=== PATIENT | female | born 1940 | race Caucasian/White ===

== ENCOUNTER 2016-05-01 07:22 | Day surgery (SDC) | payer MEDICARE, OTHER ==
[2016-05-01] MEDS ORDERED: levoFLOXacin 0.5% OPHTH DROPS 5 ML OPTH ONE ×2 (07:30→08:30)
[2016-05-01] MEDS ORDERED: BSS/LIDOCAINE/EPINEPHRINE 1 ML SYRINGE IO ONE ×2 (07:30→08:31)
[2016-05-01] MEDS ORDERED: PROPARACAINE 0.5% OPHTH DROPS 15 ML OPTH ONE ×2 (07:30→08:30)
[2016-05-01] MEDS ORDERED: EPINEPHrine 1 MG/ML AMP IO ONE ×2 (07:30→08:30)
[2016-05-01] MEDS ORDERED: TETRACAINE OPHTH DROPS 2 ML OPTH ONE ×2 (07:30→08:30)
[2016-05-01] MEDS ORDERED: BRIMONIDINE 0.2% OPHTH DROPS 5 ML OPTH ONE ×2 (07:30→08:30)
[2016-05-01] MEDS ORDERED: CHONDR SULF/HYALURONATE SYRINGE IO ONE ×2 (07:30→08:31)
[2016-05-01] MEDS ORDERED: CYCLOPENTOLATE 1% OPHTH DROPS 2 ML OPTH ONE (07:45)
[2016-05-01] MEDS ORDERED: TROPICAMIDE 1% OPHTH 2 ML DROPS OPTH ONE (07:45)
[2016-05-01] MEDS ORDERED: KETOROLAC 0.45% OPHTH DROPS OPTH ONE (07:46)
[2016-05-01] MEDS ORDERED: LACTATED RINGERS 500 ML IV ONE (07:47)
[2016-05-01] MEDS ORDERED: MIDAZOLAM 2 MG/2 ML VIAL IVP ONE (08:25)
== END 2016-05-01 07:23 | disposition home or self-care (01) ==
PROC: 08RJ3JZ Replacement of Right Lens with Synthetic Substitute, Percutaneous Approach (ICD-10-PCS; principal; 2016-05-01 08:25)
DX: H25.11 Age-related nuclear cataract, right eye (principal); Z87.891 Personal history of nicotine dependence; I10 Essential (primary) hypertension; E78.5 Hyperlipidemia, unspecified
CPT/HCPCS: 66984; V2632

== ENCOUNTER 2016-05-05 09:30 | Outpatient (CLI) | payer MEDICARE, OTHER | END 2016-05-05 09:31 | disposition home or self-care (01) | DX: R73.09 Other abnormal glucose (principal); I10 Essential (primary) hypertension; E78.5 Hyperlipidemia, unspecified; Z79.899 Other long term (current) drug therapy ==

== ENCOUNTER 2016-06-26 09:28 | Outpatient (CLI) | payer MEDICARE, OTHER | END 2016-06-26 09:29 | disposition home or self-care (01) | DX: M85.88 Other specified disorders of bone density and structure, other site (principal) ==

== ENCOUNTER 2016-06-26 09:30 | Outpatient (CLI) | payer MEDICARE, OTHER | END 2016-06-26 09:31 | disposition home or self-care (01) | DX: Z12.31 Encounter for screening mammogram for malignant neoplasm of breast (principal) ==

== ENCOUNTER 2016-08-23 11:17 | Outpatient (CLI) | payer MEDICARE, OTHER | END 2016-08-23 11:18 | disposition home or self-care (01) | DX: R05 Cough (principal) ==

== ENCOUNTER 2016-09-26 06:05 | Day surgery (SDC) | payer MEDICARE, OTHER ==
[2016-09-26] MEDS ORDERED: LACTATED RINGERS 1,000 ML IV ONE (06:51)
[2016-09-26] MEDS ORDERED: MIDAZOLAM 2 MG/2 ML VIAL IVP ONE (07:35)
[2016-09-26] MEDS ORDERED: fentaNYL 100 MCG/2 ML VIAL IVP ONE (07:35)
[2016-09-26 08:59] VITALS: BP 134/63
== END 2016-09-26 06:06 | disposition home or self-care (01) ==
LOC: SDS 06:05
PROVIDERS: ATTEND Surgery
PROC: 0DBK8ZZ Excision of Ascending Colon, Via Natural or Artificial Opening Endoscopic (ICD-10-PCS; principal; 2016-09-26 07:30)
DX: R19.5 Other fecal abnormalities (principal); D12.2 Benign neoplasm of ascending colon; Q27.33 Arteriovenous malformation of digestive system vessel; K57.30 Diverticulosis of large intestine without perforation or abscess without bleeding; K64.8 Other hemorrhoids; I10 Essential (primary) hypertension; J45.909 Unspecified asthma, uncomplicated; Z87.891 Personal history of nicotine dependence; E88.81 Metabolic syndrome and other insulin resistance
CPT/HCPCS: 45385; J7120; 88305

== ENCOUNTER 2016-12-24 08:09 | Outpatient (CLI) | payer MEDICARE, OTHER ==
[2016-12-24 09:49] LABS: HEMOGLOBIN A1C 0.67 g/dL
== END 2016-12-24 08:10 | disposition home or self-care (01) ==
LOC: LAB 08:09
PROVIDERS: ATTEND Internal Medicine
DX: E11.65 Type 2 diabetes mellitus with hyperglycemia (principal)
CPT/HCPCS: 36415; 83036

== ENCOUNTER 2017-05-02 08:43 | Outpatient (CLI) | payer MEDICARE, OTHER ==
[2017-05-02 09:22] LABS: HB2 TOTAL 13.4 g/dL; HEMOGLOBIN A1C 0.71 g/dL
== END 2017-05-02 08:44 | disposition home or self-care (01) ==
LOC: LAB 08:43
PROVIDERS: ATTEND Internal Medicine
DX: E11.9 Type 2 diabetes mellitus without complications (principal)
CPT/HCPCS: 36415; 83036

== ENCOUNTER 2017-06-18 08:07 | Outpatient (CLI) | payer MEDICARE, OTHER ==
[2017-06-18 08:34] LABS: BASOPHILS % (AUTO) 0.7 %; EOSINOPHILS # (AUTO) 0.1 10^3/uL (0.0-0.7); EOSINOPHILS % (AUTO) 1.8 %; HGB - HEMOGLOBIN 12.6 g/dL (12.0-16.0); LYMPHOCYTES # (AUTO) 1.9 10^3/uL (1.5-3.5); MEAN CORPUSCULAR HGB CONC 32.5 g/dL (32.0-36.0); MEAN CORPUSCULAR VOLUME 79.9 fL (81.0-99.0); MEAN PLATELET VOLUME 7.7 fL (7.9-10.8); MONOCYTES # (AUTO) 0.4 10^3/uL (0.0-1.0); MONOCYTES % (AUTO) 7.6 %; NEUTROPHILS # (AUTO) 3.4 10^3/uL (1.5-6.6); NEUTROPHILS % (AUTO) 57.9 %; PLT - PLATELET COUNT 230 10^3/uL (130-450); RED BLOOD COUNT 4.84 10^6/uL (4.20-5.40); RED CELL DISTRIBUTION WIDTH 14.6 % (12.0-15.0); WHITE BLOOD COUNT 5.8 x10^3/uL (4.8-10.8)
[2017-06-18 09:24] LABS: ALBUMIN/GLOBULIN RATIO 1.5 (1.0-2.2); ALKALINE PHOSPHATASE 57 IU/L (42-121); ALT ALANINE AMINOTRANSFERASE 21 IU/L (10-60); AST ASPARTATE AMINOTRANSFERASE 19 IU/L (10-42); BILIRUBIN,TOTAL 0.8 mg/dL (0.2-1.0); BUN - BLOOD UREA NITROGEN 19 mg/dL (6-20); CALCIUM 8.6 mg/dL (8.5-10.3); CARBON DIOXIDE - CO2 28 mmol/L (21-32); CHLORIDE 104 mmol/L (101-111); CHOL/HDL RATIO 3.2 (<4.4); CHOLESTEROL 161 mg/dL; CREATININE 0.5 mg/dL (0.4-1.0); GFR - MDRD 119 (>89); GLUCOSE 115 mg/dL (70-100); HDL CHOLESTEROL 50 mg/dL; LDL CHOLESTEROL,CALCULATED 88 mg/dL; LDL/HDL RATIO 1.8 (<4.4); SODIUM 141 mmol/L (135-145); TOTAL PROTEIN 6.7 g/dL (6.7-8.2); VLDL CHOLESTEROL 23 mg/dL
== END 2017-06-18 08:08 | disposition home or self-care (01) ==
LOC: LAB 08:07
PROVIDERS: ATTEND Internal Medicine
DX: E78.5 Hyperlipidemia, unspecified (principal); E11.9 Type 2 diabetes mellitus without complications; I10 Essential (primary) hypertension
CPT/HCPCS: 36415; 80053; 80061; 83721; 84443; 85025

== ENCOUNTER 2017-06-25 07:58 | Outpatient (CLI) | payer MEDICARE, OTHER ==
[2017-06-25 10:05] LABS: HB2 TOTAL 13.7 g/dL; HEMOGLOBIN A1C 0.73 g/dL
== END 2017-06-25 07:59 | disposition home or self-care (01) ==
LOC: LAB 07:58
PROVIDERS: ATTEND Internal Medicine
DX: E11.9 Type 2 diabetes mellitus without complications (principal); R71.8 Other abnormality of red blood cells
CPT/HCPCS: 36415; 82728; 83036

== ENCOUNTER 2017-07-28 09:16 | Outpatient (CLI) | payer MEDICARE, OTHER | END 2017-07-28 09:17 | disposition home or self-care (01) | LOC: SC 09:16 | PROVIDERS: ATTEND Internal Medicine Pulmonary Disease | DX: G47.30 Sleep apnea, unspecified (principal); G47.8 Other sleep disorders; R06.83 Snoring | CPT/HCPCS: 99203; G0463; 99212 ==

== ENCOUNTER 2017-07-31 08:20 | Outpatient (CLI) | payer MEDICARE, OTHER ==
[2017-07-31 08:50] LABS: HB2 TOTAL 14.1 g/dL; HEMOGLOBIN A1C 0.75 g/dL
== END 2017-07-31 08:21 | disposition home or self-care (01) ==
LOC: LAB 08:20
PROVIDERS: ATTEND Internal Medicine
DX: E11.9 Type 2 diabetes mellitus without complications (principal)
CPT/HCPCS: 36415; 83036

== ENCOUNTER 2017-09-24 19:34 | Outpatient (CLI) | payer MEDICARE, OTHER | END 2017-09-24 19:35 | disposition home or self-care (01) | LOC: SC 19:34 | PROVIDERS: ATTEND Internal Medicine Pulmonary Disease | DX: G47.33 Obstructive sleep apnea (adult) (pediatric) (principal); G47.61 Periodic limb movement disorder | CPT/HCPCS: 95810 ==

== ENCOUNTER 2017-10-07 11:01 | Outpatient (CLI) | payer MEDICARE, OTHER | END 2017-10-07 11:02 | disposition home or self-care (01) | LOC: SC 11:01 | PROVIDERS: ATTEND Nurse Practitioner Family | DX: G47.33 Obstructive sleep apnea (adult) (pediatric) (principal) | CPT/HCPCS: 99214; G0463; 99212 ==

== ENCOUNTER 2017-11-21 09:13 | Outpatient (CLI) | payer MEDICARE, OTHER ==
[2017-11-21 10:06] LABS: HB2 TOTAL 13.3 g/dL; HEMOGLOBIN A1C 0.69 g/dL; HEMOGLOBIN A1C % 6.9 % (4.6-6.2)
== END 2017-11-21 09:14 | disposition home or self-care (01) ==
LOC: LAB 09:13
PROVIDERS: ATTEND Internal Medicine
DX: E11.9 Type 2 diabetes mellitus without complications (principal)
CPT/HCPCS: 36415; 83036

== ENCOUNTER 2017-12-22 10:23 | Outpatient (CLI) | payer MEDICARE, OTHER | END 2017-12-22 10:24 | disposition home or self-care (01) | LOC: SC 10:23 | PROVIDERS: ATTEND Nurse Practitioner Family | DX: G47.33 Obstructive sleep apnea (adult) (pediatric) (principal) | CPT/HCPCS: 99214; G0463; 99212 ==

== ENCOUNTER 2018-01-29 13:52 | Outpatient (CLI) | payer MEDICARE, OTHER | END 2018-01-29 13:53 | disposition home or self-care (01) | LOC: SC 13:52 | PROVIDERS: ATTEND Nurse Practitioner Family | DX: G47.33 Obstructive sleep apnea (adult) (pediatric) (principal) | CPT/HCPCS: 99214; G0463; 99212 ==

== ENCOUNTER 2018-03-25 08:06 | Outpatient (CLI) | payer MEDICARE, OTHER ==
[2018-03-25 08:43] LABS: HB2 TOTAL 13.4 g/dL; HEMOGLOBIN A1C 0.75 g/dL; HEMOGLOBIN A1C % 7.3 % (4.6-6.2)
== END 2018-03-25 08:07 | disposition home or self-care (01) ==
LOC: LAB 08:06
PROVIDERS: ATTEND Internal Medicine
DX: E11.9 Type 2 diabetes mellitus without complications (principal)
CPT/HCPCS: 36415; 83036

== ENCOUNTER 2018-06-30 09:12 | Outpatient (CLI) | payer MEDICARE, OTHER | END 2018-06-30 09:13 | disposition home or self-care (01) | LOC: SC 09:12 | PROVIDERS: ATTEND Internal Medicine Pulmonary Disease | DX: G47.33 Obstructive sleep apnea (adult) (pediatric) (principal) | CPT/HCPCS: 99213; G0463; 99212 ==

== ENCOUNTER 2018-10-21 07:39 | Outpatient (CLI) | payer MEDICARE, OTHER ==
[2018-10-21 07:57] LABS: BASOPHILS % (AUTO) 0.6 %; EOSINOPHILS # (AUTO) 0.2 10^3/uL (0.0-0.7); EOSINOPHILS % (AUTO) 2.9 %; HGB - HEMOGLOBIN 12.4 g/dL (12.0-16.0); LYMPHOCYTES # (AUTO) 1.7 10^3/uL (1.5-3.5); LYMPHOCYTES % (AUTO) 31.9 %; MEAN CORPUSCULAR HEMOGLOBIN 25.7 pg (27.0-31.0); MEAN CORPUSCULAR HGB CONC 30.4 g/dL (32.0-36.0); MEAN CORPUSCULAR VOLUME 84.5 fL (81.0-99.0); MEAN PLATELET VOLUME 9.6 fL (7.9-10.8); MONOCYTES # (AUTO) 0.6 10^3/uL (0.0-1.0); MONOCYTES % (AUTO) 10.3 %; NEUTROPHILS % (AUTO) 54.1 %; PLT - PLATELET COUNT 236 10^3/uL (130-450); RED BLOOD COUNT 4.83 10^6/uL (4.20-5.40); RED CELL DISTRIBUTION WIDTH 14.1 % (12.0-15.0); WHITE BLOOD COUNT 5.5 x10^3/uL (4.8-10.8)
[2018-10-21 08:11] LABS: ALBUMIN 4.1 g/dL (3.2-5.5); ALBUMIN/GLOBULIN RATIO 1.5 (1.0-2.2); ALKALINE PHOSPHATASE 62 IU/L (42-121); ALT ALANINE AMINOTRANSFERASE 22 IU/L (10-60); AST ASPARTATE AMINOTRANSFERASE 19 IU/L (10-42); BILIRUBIN,TOTAL 0.8 mg/dL (0.2-1.0); BUN - BLOOD UREA NITROGEN 18 mg/dL (6-20); CALCIUM 9.1 mg/dL (8.5-10.3); CARBON DIOXIDE - CO2 28 mmol/L (21-32); CHLORIDE 102 mmol/L (101-111); CHOL/HDL RATIO 3.2 (<4.4); CHOLESTEROL 167 mg/dL; CREATININE 0.7 mg/dL (0.4-1.0); GFR - MDRD 81 (>89); GLUCOSE 125 mg/dL (70-100); HDL CHOLESTEROL 52 mg/dL; LDL CHOLESTEROL,CALCULATED 94 mg/dL; LDL/HDL RATIO 1.8 (<4.4); SODIUM 141 mmol/L (135-145); TOTAL PROTEIN 6.9 g/dL (6.7-8.2); VLDL CHOLESTEROL 21 mg/dL
[2018-10-21 08:17] LABS: HB2 TOTAL 12.7 g/dL; HEMOGLOBIN A1C 0.64 g/dL; HEMOGLOBIN A1C % 6.8 % (4.6-6.2)
== END 2018-10-21 07:40 | disposition home or self-care (01) ==
LOC: LAB 07:39
PROVIDERS: ATTEND Family Medicine
DX: E78.5 Hyperlipidemia, unspecified (principal); E11.9 Type 2 diabetes mellitus without complications
CPT/HCPCS: 36415; 80053; 80061; 83036; 83721; 84443; 85025

== ENCOUNTER 2019-12-23 08:09 | Outpatient (CLI) | payer MEDICARE, OTHER ==
[2019-12-23 08:50] LABS: BASOPHILS % (AUTO) 0.5 %; EOSINOPHILS # (AUTO) 0.1 10^3/uL (0.0-0.7); EOSINOPHILS % (AUTO) 1.1 %; HGB - HEMOGLOBIN 12.2 g/dL (12.0-16.0); LYMPHOCYTES # (AUTO) 1.6 10^3/uL (1.5-3.5); LYMPHOCYTES % (AUTO) 26.2 %; MEAN CORPUSCULAR HGB CONC 32.2 g/dL (32.0-36.0); MEAN CORPUSCULAR VOLUME 83.8 fL (81.0-99.0); MEAN PLATELET VOLUME 9.9 fL (7.9-10.8); MONOCYTES # (AUTO) 0.5 10^3/uL (0.0-1.0); MONOCYTES % (AUTO) 8.1 %; NEUTROPHILS % (AUTO) 63.9 %; PLT - PLATELET COUNT 249 10^3/uL (130-450); RED BLOOD COUNT 4.52 10^6/uL (4.20-5.40); RED CELL DISTRIBUTION WIDTH 13.8 % (12.0-15.0); WHITE BLOOD COUNT 6.2 x10^3/uL (4.8-10.8)
[2019-12-23 09:09] LABS: ALBUMIN/GLOBULIN RATIO 1.5 (1.0-2.2); ALKALINE PHOSPHATASE 63 IU/L (42-121); ALT ALANINE AMINOTRANSFERASE 19 IU/L (10-60); AST ASPARTATE AMINOTRANSFERASE 15 IU/L (10-42); BILIRUBIN,TOTAL 0.6 mg/dL (0.2-1.0); BUN - BLOOD UREA NITROGEN 18 mg/dL (6-20); CARBON DIOXIDE - CO2 27 mmol/L (21-32); CHLORIDE 104 mmol/L (101-111); CHOL/HDL RATIO 2.8 (<4.4); CHOLESTEROL 164 mg/dL; CREATININE 0.6 mg/dL (0.4-1.0); GLUCOSE 121 mg/dL (70-100); HDL CHOLESTEROL 58 mg/dL; LDL CHOLESTEROL,CALCULATED 86 mg/dL; LDL/HDL RATIO 1.5 (<4.4); SODIUM 139 mmol/L (135-145); TOTAL PROTEIN 6.6 g/dL (6.7-8.2); VLDL CHOLESTEROL 20 mg/dL
== END 2019-12-23 08:10 | disposition home or self-care (01) ==
LOC: LAB 08:09
PROVIDERS: ATTEND Family Medicine
DX: E78.5 Hyperlipidemia, unspecified (principal); E11.9 Type 2 diabetes mellitus without complications; I10 Essential (primary) hypertension
CPT/HCPCS: 36415; 80053; 80061; 83036; 83721; 84443; 85025

== ENCOUNTER 2020-01-14 15:44 | Outpatient (CLI) | payer MEDICARE, OTHER ==
--- NOTE | 2020-01-14 17:08 | Ultrasound Report ---
PROCEDURE: Pelvic w/Transvaginal INDICATIONS: OSTEITIS PUBIS/PELVIC PAIN TECHNIQUE: Real-time scanning was performed of the pelvic organs, with image documentation. Additional endovagi nal scanning was necessary due to incomplete visualization of the adnexal and endometrial structures by transabdominal scanning. COMPARISON: None. FINDINGS: Transabdominal scanning: Limited scanning through the kidneys shows no hydronephrosis. No pathologi c free abdominal or pelvic fluid. Endovaginal scanning: Uterus: Uterus has been removed. Ovaries: The ovaries are not visualized. Adnexal regions are within normal limits. IMPRESSION: 1. Hysterectomy. 2. Ovaries are not visualized. Adnexal regions are within normal limits. Reviewed by: Kely Jones MD on 01/14/2020 5:07 PM PDT Approved by: Kely Jones MD on 01/14/2020 5:07 PM PDT Station ID: [id number]
== END 2020-01-14 15:45 | disposition home or self-care (01) ==
LOC: DI 15:44
PROVIDERS: ATTEND Family Medicine
DX: M85.38 Osteitis condensans, other site (principal); R35.0 Frequency of micturition; R10.2 Pelvic and perineal pain
CPT/HCPCS: 76830; 76856

== ENCOUNTER 2020-02-08 13:22 | Outpatient (CLI) | payer MEDICARE, OTHER ==
--- NOTE | 2020-02-08 14:13 | SLEEP CARE CONSULTATION ---
Information from patient questionnaire entered by Sandra Heredia. I have reviewed and concur with the information entered by Sandra Heredia. This document represents the service I personally performed and the decisions made by me, Puma Rivera MD, [facility]. History of Present Illness Service Date and Time: 02/08/2020 1322 Previous diagnosis: Severe, Obstructive Sleep Apnea-Hypopnea Syndrome AHI: 53.9 (in 2018) Reason for follow up: annual (last seen 2019) Equipment type: CPAP Equipment obtained from: [employer] Prior sleep studies: Yes Year and Where: 2018 - [facility] Type of Sleep Study: Polysomnography HPI additional information: HPI: Mrs. Jerome returns today with her for follow up of nasal CPAP therapy. She was last seen almost 2 years ago. She was diagnosed to have severe obstructive sleep apnea-hypopnea syndrome. The patient got supplies from [employer]. She wears a full face mask. She reports using the device nightly and all through the night. The compliance report shows usage in 180 nights out of the past 180 nights, averaging 7.1 hours a night. She complained of no particular problem with the device such as soreness on the face, dry nose, epistaxis, nasal congestion or headache. She thinks that the pressure of 8 - 14 cmH2O is comfortable. On the CPAP therapy she notices improvement in her sleep quality, and that she wakes up feeling fresher in the morning and more awake/alert during the day. The [place] Sleepiness Scale score 6. Her notices no snore at all. The average residual AHI is 2.0; average time in large leak per day is 9 minutes a night. The 90th percentile pressure is 11.9 cmH2O. CPAP Compliance Data - Data Reviewed with Patient Average duration of nightly device use: 7.1 Compliance rate %: 100 (180 days) Current pressure setting (cmH2O): 8-14 Humidity settin Heated hose settin Average residual AHI: 2.0 Average large leak: 9 min 12 sec Subjective Initial [place] Sleepiness Scale score: 9 (in 2018) Allergies and Home Medications Drug allergies reviewed: Yes Home medication list reviewed: Yes Review of Systems Review of systems same as previous: Yes Physical Exam Vital signs obtained and entered by: To minimize the risk of COVID-19 exposure, detailed exam was not performed. Height: 5 ft 6 in Weight: 180 lb Body Mass Index: 29.0 BMI Classification: Overweight Impression and Plan IMPRESSION: 1. Obstructive Sleep Apnea-Hypopnea Syndrome, severe, with the patient continuing to do well on nasal CPAP therapy. She has excellent compliance and significant clinical improvement. The current pressure appears effective and comfortable. Overall, she is very satisfied with treatment and plans to continue with it long-term. Because [employer] no longer provides CPAP supplies, I will switch her to a different company. PLAN: 1. Leave autoCPAP at 8 - 14 cmH2O. 2. Try to lose weight 3. Prescription made for CPAP supplies. 4. Return for follow up in a year or earlier if there is any problem. Visit Type: In Office Time Spent with Patient (minutes): 15 Provider Statement: I spent 100% of the Face to Face Visit with the patient with greater than 50% spent counseling the patient and coordination of care.
== END 2020-02-08 13:23 | disposition home or self-care (01) ==
LOC: SC 13:22
PROVIDERS: ATTEND Internal Medicine Pulmonary Disease
DX: G47.33 Obstructive sleep apnea (adult) (pediatric) (principal); E66.3 Overweight; Z68.29 Body mass index [BMI] 29.0-29.9, adult
CPT/HCPCS: 99213; G0463; 99212

== ENCOUNTER 2020-08-03 13:40 | Outpatient (CLI) | payer MEDICARE, OTHER ==
[2020-08-03 14:11] LABS: BASOPHILS % (AUTO) 0.6 %; EOSINOPHILS # (AUTO) 0.1 10^3/uL (0.0-0.7); EOSINOPHILS % (AUTO) 1.2 %; HCT - HEMATOCRIT 37.4 % (37.0-47.0); HGB - HEMOGLOBIN 11.6 g/dL (12.0-16.0); LYMPHOCYTES # (AUTO) 1.9 10^3/uL (1.5-3.5); LYMPHOCYTES % (AUTO) 27.7 %; MEAN CORPUSCULAR HEMOGLOBIN 26.2 pg (27.0-31.0); MEAN CORPUSCULAR VOLUME 84.6 fL (81.0-99.0); MONOCYTES # (AUTO) 0.5 10^3/uL (0.0-1.0); MONOCYTES % (AUTO) 7.1 %; NEUTROPHILS # (AUTO) 4.4 10^3/uL (1.5-6.6); NEUTROPHILS % (AUTO) 63.3 %; PLT - PLATELET COUNT 280 10^3/uL (130-450); RED BLOOD COUNT 4.42 10^6/uL (4.20-5.40); RED CELL DISTRIBUTION WIDTH 13.5 % (12.0-15.0); WHITE BLOOD COUNT 6.9 x10^3/uL (4.8-10.8)
[2020-08-03 14:17] LABS: ALBUMIN/GLOBULIN RATIO 1.5 (1.0-2.2); BILIRUBIN,TOTAL 0.6 mg/dL (0.2-1.0); CALCIUM 8.8 mg/dL (8.5-10.3); CREATININE 0.8 mg/dL (0.4-1.0); POTASSIUM 4.1 mmol/L (3.5-5.0); TOTAL PROTEIN 6.7 g/dL (6.7-8.2)
[2020-08-03 14:34] LABS: THYROID STIMULATING HORMONE 2.7 uIU/mL (0.34-5.60)
[2020-08-03 14:35] LABS: BILIRUBIN,URINE NEGATIVE (NEGATIVE); GLUCOSE, URINE (UA) NEGATIVE (NEGATIVE); KETONES,URINE (UA) NEGATIVE (NEGATIVE); LEUKOCYTE ESTERASE, URINE NEGATIVE (NEGATIVE); NITRITE,URINE NEGATIVE (NEGATIVE); OCCULT BLOOD,URINE MODERATE (NEGATIVE); PROTEIN,URINE NEGATIVE (NEGATIVE); UROBILINOGEN,URINE 0.2 (NORMAL) E.U./dL (NORMAL)
[2020-08-03 14:36] LABS: CLARITY,URINE CLEAR (CLEAR)
[2020-08-03 14:40] LABS: BACTERIA,URINE Rare /HPF (None Seen); SQUAMOUS EPITHELIAL CELL,UR MOD Squamous (<= Few)
== END 2020-08-03 13:41 | disposition home or self-care (01) ==
LOC: LAB 13:40
PROVIDERS: ATTEND Family Medicine
DX: R35.0 Frequency of micturition (principal)
CPT/HCPCS: 36415; 80053; 81001; 84443; 85025; 87086

== ENCOUNTER 2020-10-13 10:18 | Outpatient (CLI) | payer MEDICARE, OTHER ==
--- NOTE | 2020-10-13 11:52 | XRAY Report ---
PROCEDURE: Lumbar Spine 2 View INDICATIONS: LUMBAR RADICULOPATHY TECHNIQUE: 3 views of the lumbar spine were acquired. COMPARISON: None. FINDINGS: Bones: 5 kja-xio-jiqyicp vertebrae are present. There is minimal anterolisthesis of L4 on L5 and L5 on S1. Degenerative endplate changes and bilateral facet arthrosis at L4-5 and L5-S1 levels are see n. No vertebral body compression fractures. No suspicious bony lesions. Soft tissues: Overlying bowel gas pattern is normal. Atherosclerotic calcifications in the abdominal aorta and bilateral iliac vessels are seen. IMPRESSION: Degenerative disc disease in lower lumbar spine with minimal anterolisthesis at L4-5 and L5-S1 levels. No acute compression fracture. Reviewed by: Guero Romero MD on 10/13/2020 11:50 AM PDT Approved by: Guero Romero MD on 10/13/2020 11:50 AM PDT Station ID: [id number]
== END 2020-10-13 10:19 | disposition home or self-care (01) ==
LOC: DI 10:18
PROVIDERS: ATTEND Family Medicine
DX: M43.16 Spondylolisthesis, lumbar region (principal); M43.17 Spondylolisthesis, lumbosacral region; M51.36 Other intervertebral disc degeneration, lumbar region; M51.37 Other intervertebral disc degeneration, lumbosacral region

== ENCOUNTER 2020-11-28 07:39 | Outpatient (CLI) | payer MEDICARE, OTHER ==
[2020-11-28 08:02] LABS: BASOPHILS % (AUTO) 0.7 %; EOSINOPHILS # (AUTO) 0.2 10^3/uL (0.0-0.7); EOSINOPHILS % (AUTO) 3.3 %; HCT - HEMATOCRIT 36.7 % (37.0-47.0); HGB - HEMOGLOBIN 11.4 g/dL (12.0-16.0); LYMPHOCYTES # (AUTO) 1.8 10^3/uL (1.5-3.5); LYMPHOCYTES % (AUTO) 31.3 %; MEAN CORPUSCULAR HEMOGLOBIN 26.5 pg (27.0-31.0); MEAN CORPUSCULAR HGB CONC 31.1 g/dL (32.0-36.0); MEAN CORPUSCULAR VOLUME 85.3 fL (81.0-99.0); MEAN PLATELET VOLUME 9.5 fL (7.9-10.8); MONOCYTES # (AUTO) 0.5 10^3/uL (0.0-1.0); MONOCYTES % (AUTO) 9.1 %; NEUTROPHILS # (AUTO) 3.2 10^3/uL (1.5-6.6); NEUTROPHILS % (AUTO) 55.4 %; PLT - PLATELET COUNT 263 10^3/uL (130-450); RED CELL DISTRIBUTION WIDTH 13.9 % (12.0-15.0); WHITE BLOOD COUNT 5.7 x10^3/uL (4.8-10.8)
[2020-11-28 08:23] LABS: ALBUMIN/GLOBULIN RATIO 1.5 (1.0-2.2); ALKALINE PHOSPHATASE 61 IU/L (42-121); ALT ALANINE AMINOTRANSFERASE 29 IU/L (10-60); AST ASPARTATE AMINOTRANSFERASE 20 IU/L (10-42); BILIRUBIN,TOTAL 0.7 mg/dL (0.2-1.0); BUN - BLOOD UREA NITROGEN 22 mg/dL (6-20); CALCIUM 9.2 mg/dL (8.5-10.3); CARBON DIOXIDE - CO2 28 mmol/L (21-32); CHLORIDE 106 mmol/L (101-111); CHOL/HDL RATIO 3.4 (<4.4); CHOLESTEROL 178 mg/dL; CREATININE 0.7 mg/dL (0.4-1.0); GFR - MDRD 80 (>89); GLUCOSE 115 mg/dL (70-100); HDL CHOLESTEROL 53 mg/dL; LDL CHOLESTEROL,CALCULATED 98 mg/dL; LDL/HDL RATIO 1.8 (<4.4); POTASSIUM 4.7 mmol/L (3.5-5.0); SODIUM 143 mmol/L (135-145); TOTAL PROTEIN 6.7 g/dL (6.7-8.2); TRIGLYCERIDES 135 mg/dL; VLDL CHOLESTEROL 27 mg/dL
[2020-11-28 08:33] LABS: THYROID STIMULATING HORMONE 3.03 uIU/mL (0.34-5.60)
[2020-11-28 10:29] LABS: ESTIMATED AVERAGE GLUCOSE 140 mg/dL (70-100); HEMOGLOBIN A1c% 6.5 % (4.27-6.07)
== END 2020-11-28 07:40 | disposition home or self-care (01) ==
LOC: LAB 07:39
PROVIDERS: ATTEND Family Medicine
DX: E11.65 Type 2 diabetes mellitus with hyperglycemia (principal); M54.16 Radiculopathy, lumbar region; R35.0 Frequency of micturition; M47.9 Spondylosis, unspecified
CPT/HCPCS: 36415; 80053; 80061; 83036; 83721; 84443; 85025

== ENCOUNTER 2021-02-05 10:18 | Outpatient (CLI) | payer MEDICARE, OTHER ==
[2021-02-05 10:51] VITALS: BP 132/76
--- NOTE | 2021-02-05 10:51 | SLEEP CARE CONSULTATION ---
Information from patient questionnaire entered by Naomi Fernandes. I have reviewed and concur with the information entered by Naomi Fernandes. This document represents the service I personally performed and the decisions made by me, Puma Rivera MD, [facility]. History of Present Illness Service Date and Time: 02/05/2021 1018 Previous diagnosis: Severe, Obstructive Sleep Apnea-Hypopnea Syndrome AHI: 53.9 (in 2018) Reason for follow up: annual Equipment type: CPAP Equipment obtained from: [employer] Prior sleep studies: Yes Year and Where: 2018 - [facility] Type of Sleep Study: Polysomnography HPI additional information: Mrs. Jerome returns today with her for follow up of nasal CPAP therapy. She was last seen a year ago. She was diagnosed to have severe obstructive sleep apnea-hypopnea syndrome. The patient got supplies from [employer]. She wears a full face mask. She reports using the device nightly and all through the night. The compliance report shows usage in 180 nights out of the past 180 nights, averaging 7.2 hours a night. She complained of no particular problem with the device such as soreness on the face, dry nose, epistaxis, nasal congestion or headache. She thinks that the pressure of 8 - 14 cmH2O is comfortable. On the CPAP therapy she notices improvement in her sleep quality, and that she wakes up feeling fresher in the morning and more awake/alert during the day. The [place] Sleepiness Scale score 4. Her notices no snore at all. The average residual AHI is 2.2; average time in large leak per day is 14.8 minutes a night. The 90th percentile pressure is 11.1 cmH2 O. Sleep Study - Results Type of Sleep Study: Polysomnography [facility] Yes [facility] Compliance Data - Data Reviewed with Patient Average duration of nightly device use: 7 hours 12 minutes Compliance rate %: 99.4 Current pressure setting (cmH2O): 8-14 Humidity settin Heated hose settin Average residual AHI: 2.2 Average large leak: 14 minutes 46 seconds Subjective Initial [place] Sleepiness Scale score: 9 (in 2018) Allergies and Home Medications Drug allergies reviewed: Yes Home medication list reviewed: Yes Review of Systems Review of systems same as previous: Yes Physical Exam Blood Pressure: 132/76 Cuff size: regular Heart Rate: 75 O2 Saturation: 97 Height: 5 ft 6 in Weight: 180 lb Body Mass Index: 29.0 BMI Classification: Overweight Impression and Plan IMPRESSION: 1. Obstructive Sleep Apnea-Hypopnea Syndrome, severe, with the patient continuing to do well on nasal CPAP therapy. She has excellent compliance and significant clinical improvement. The current pressure appears effective and comfortable. Overall, she is very satisfied with treatment and plans to continue with it long-term. In regards to the recall on all [employer] devices, we discussed the risks and benefits of stopping versus continuing to use the device. In severe cases, it appears the benefits outweigh the risks and it is reasonable to continue until the replace part or machine becomes available. Symptoms that could be related to the recalled sound abatement foam piece are headache, nausea, chest tightness, and upper airway irritation. The patients should also look for debris in the air outlet, water reservoir, and hose. If found, the device should not be used. In ewhj-ov-fywhkhyn cases, the patients should refrain from using the device. The patient has already registered her machine with [employer] and is waiting for the replacement. PLAN: 1. Leave autoCPAP at 8 - 14 cmH2O. 2. Try to lose weight 3. Return for follow up in a year or earlier if there is any problem. Visit Type: In Office Provider Statement: I spent 100% of the Face to Face Visit with the patient with greater than 50% spent counseling the patient and coordination of care.
== END 2021-02-05 10:19 | disposition home or self-care (01) ==
LOC: SC 10:18
PROVIDERS: ATTEND Internal Medicine Pulmonary Disease
DX: G47.33 Obstructive sleep apnea (adult) (pediatric) (principal)
CPT/HCPCS: 99212; G0463

== ENCOUNTER 2022-02-25 10:52 | Outpatient (CLI) | payer MEDICARE, OTHER ==
[2022-02-25 11:39] VITALS: BP 136/74
--- NOTE | 2022-02-25 11:39 | SLEEP CARE CONSULTATION ---
Information from patient questionnaire entered by Michael Ortez. I have reviewed and concur with the information entered by Michael Ortez. This document represents the service I personally performed and the decisions made by me, Puma Rivera MD, [facility]. History of Present Illness Service Date and Time: 02/25/2022 1052 Previous diagnosis: Severe, Obstructive Sleep Apnea-Hypopnea Syndrome AHI: 53.9 (in 2018) Reason for follow up: annual (LAST SEEN 01/2021) Equipment type: CPAP (DREAMSTATION) Equipment obtained from: [employer] Prior sleep studies: Yes Year and Where: 2017 [facility] Type of Sleep Study: Polysomnography HPI additional information: Mrs. Jerome returns today with her for follow up of nasal CPAP therapy. She was last seen a year ago. She was diagnosed to have severe obstructive sleep apnea-hypopnea syndrome. The patient got supplies from [employer]. She wears a full face mask. She reports using the device nightly and all through the night. The compliance report shows usage in 180 nights out of the past 180 nights, averaging 7.7 hours a night. She complained of no particular problem with the device such as soreness on the face, dry nose, epistaxis, nasal congestion or headache. She thinks that the pressure of 8 - 14 cmH2O is comfortable. On the CPAP therapy she notices improvement in her sleep quality, and that she wakes up feeling fresher in the morning and more awake/alert during the day. The [place] Sleepiness Scale score 4. Her notices no snore at all. The average residual AHI is 1.7; average time in large leak per day is 18 minutes a night. The 90th percentile pressure is 11.3 cmH2O. She has recently received a new [employer] DreamStation 2 as the replacement of her recalled DreamStation 1. However, she has not used it. She brought the machine in with her and asked me to set it up. Sleep Study - Results Type of Sleep Study: Polysomnography Prior sleep studies: Yes Year and Where: 2017 [facility] CPAP Compliance Data - Data Reviewed with Patient Average duration of nightly device use: 7HRS, 43MIN, 43SEC Compliance rate %: 100 (08/24/21-02/19/22) Current pressure setting (cmH2O): 8-14 Average residual AHI: 1.7 Subjective Initial [place] Sleepiness Scale score: 9 (in 2018) Current [place] Sleepiness Scale score: 4 (02/25/2022) Allergies and Home Medications Drug allergies reviewed: Yes Home medication list reviewed: Yes Allergy and home medication list: Allergies No Known Drug Allergies Allergy (Verified 04/02/16 14:36) Review of Systems Review of systems same as previous: Yes Physical Exam Vital signs obtained and entered by: MICHAEL Beckham MA Blood Pressure: 136/74 (right arm) Cuff size: regular Heart Rate: 80 O2 Saturation: 95 Height: 5 ft 6 in Weight: 179 lb 12.8 oz Body Mass Index: 29.0 BMI Classification: Overweight Impression and Plan IMPRESSION: 1. Obstructive Sleep Apnea-Hypopnea Syndrome, severe, with the patient continuing to do well on nasal CPAP therapy. She has excellent compliance and significant clinical improvement. The current pressure appears effective and comfortable. Overall, she is very satisfied with treatment and plans to continue with it long-term. PLAN: 1. Start using her new [employer] DreamStation 2 autoCPAP. 2. Try to lose weight 3. Return for follow up in a year or earlier if there is any problem. She will be eligible for a new machine then. Continue with device pressure at (cmH2O): 8 - 12 Prescriptions: Device supplies Follow up with Sleep Care in: 1 year Visit Type: In Office Time Spent with Patient (minutes): 15 Provider Statement: I spent 100% of the Face to Face Visit with the patient with greater than 50% spent counseling the patient and coordination of care.
== END 2022-02-25 10:53 | disposition home or self-care (01) ==
LOC: SC 10:52
PROVIDERS: ATTEND Internal Medicine Pulmonary Disease
DX: G47.33 Obstructive sleep apnea (adult) (pediatric) (principal); E66.3 Overweight; Z68.29 Body mass index [BMI] 29.0-29.9, adult
CPT/HCPCS: 99212; G0463

== ENCOUNTER 2022-12-20 08:00 | Outpatient (CLI) | payer MEDICARE, OTHER | END 2022-12-20 23:59 | disposition home or self-care (01) | LOC: LAB.N 08:00 | PROVIDERS: ATTEND Registered Nurse | DX: R10.30 Lower abdominal pain, unspecified (principal) | CPT/HCPCS: 87070; 87077; 87181; 87205 ==

== ENCOUNTER 2022-12-31 12:15 | Outpatient (CLI) | payer MEDICARE, OTHER ==
[2022-12-31 21:53] LABS: BACTERIAL VAGINOSIS DNA NEGATIVE (NEGATIVE); CANDIDA GLABRATA DNA NEGATIVE (NEGATIVE); CANDIDA GROUP DNA NEGATIVE (NEGATIVE); CANDIDA KRUSEI DNA NEGATIVE (NEGATIVE); TRICHOMONAS VAGINALIS DNA NEGATIVE (NEGATIVE)
== END 2022-12-31 12:30 | disposition home or self-care (01) ==
LOC: LAB.N 12:15
PROVIDERS: ATTEND Registered Nurse
DX: R10.30 Lower abdominal pain, unspecified (principal)
CPT/HCPCS: 81514; 87661; 87801

== ENCOUNTER 2023-01-06 13:06 | Outpatient (CLI) | payer MEDICARE, OTHER ==
--- NOTE | 2023-01-06 16:44 | Ultrasound Report ---
PROCEDURE: Pelvic w/Transvaginal INDICATIONS: GROIN PAIN TECHNIQUE: Real-time scanning was performed of the pelvic organs, with image documentation. Additional endovagi nal scanning was necessary due to incomplete visualization of the adnexal and endometrial structures by transabdominal scanning. COMPARISON: Pelvic ultrasound 01/14/2020. FINDINGS: Uterus: Status post hysterectomy. Ovaries: Ovaries are not visualized. No suspicious adnexal mass. Other: No pathologic free abdominal or pelvic fluid. IMPRESSION: 1.Status post hysterectomy. 2.Ovaries are not visualized. No suspicious adnexal mass. Reviewed by: Manish Vanessa MD on 01/06/2023 4:43 PM PDT Approved by: Manish Vanessa MD on 01/06/2023 4:43 PM PDT Station ID: [id number]
== END 2023-01-06 13:07 | disposition home or self-care (01) ==
LOC: DI 13:06
PROVIDERS: ATTEND Registered Nurse
DX: R10.30 Lower abdominal pain, unspecified (principal)

== ENCOUNTER 2023-02-10 10:47 | Outpatient (CLI) | payer MEDICARE, OTHER ==
--- NOTE | 2023-02-10 12:16 | SLEEP CARE CONSULTATION ---
Information from patient questionnaire entered by Michael Ortez. I have reviewed and concur with the information entered by Michael Ortez. This document represents the service I personally performed and the decisions made by me, Puma Rivera MD, [facility]. History of Present Illness Service Date and Time: 02/10/2023 1047 Previous diagnosis: Severe, Obstructive Sleep Apnea-Hypopnea Syndrome AHI: 53.9 (in 2018) Reason for follow up: annual (LAST SEEN 01/2022) Equipment type: CPAP (DREAMSTATION) Equipment obtained from: [employer] Prior sleep [facility]: Yes [facility] Type of Sleep Study: Polysomnography HPI additional information: Mrs. Jerome returns today with her for follow up of nasal CPAP therapy. She was last seen a year ago. She was diagnosed to have severe obstructive sleep apnea-hypopnea syndrome. The patient got supplies from [employer]. She wears a full face mask. She reports using the [employer] Resp[employer]ics DreamStation 2 autoCPAP nightly and all night. The compliance report shows usage in 361 nights out of the past 365 nights, averaging 7.2 hours a night. She complained of no particular problem with the device such as soreness on the face, dry nose, epistaxis, nasal congestion or headache. She thinks that the pressure of 8 - 14 cmH2O is comfortable. On the CPAP therapy she notices improvement in her sleep quality, and that she wakes up feeling fresher in the morning and more awake/alert during the day. The [place] Sleepiness Scale score 5. Her notices no snore at all. The average residual AHI is 1.5; average time in large leak per day is 9.3 minutes a night. The 90th percentile pressure is 10.3 cmH2O. Sleep Study - Results Type of Sleep Study: Polysomnography Prior sleep studies: Yes Year and Where: 2017 - [facility] CPAP Compliance Data - Data Reviewed with Patient Average duration of nightly device use: 7HRS 6MINS 36SECS Compliance rate %: 98.9 (08/11/22-02/06/23) Current pressure setting (cmH2O): 8-14 Average residual AHI: 1.3 Subjective Initial [place] Sleepiness Scale score: 9 (in 2018) Current [place] Sleepiness Scale score: 5 (10/16/23) Allergies and Home Medications Drug allergies reviewed: Yes Home medication list reviewed: Yes Allergy and home medication list: Allergies No Known Drug Allergies Allergy (Verified 02/07/23 11:48) Review of Systems Review of systems same as previous: Yes Physical Exam Vital signs obtained and entered by: MICHAEL Beckham MA Blood Pressure: 126/68 (LEFT ARM) Cuff size: regular Heart Rate: 78 O2 Saturation: 99 Height: 5 ft 6 in Weight: 173 lb 12.8 oz Body Mass Index: 28.0 BMI Classification: Overweight Impression and Plan IMPRESSION: 1. Obstructive Sleep Apnea-Hypopnea Syndrome, severe, with the patient continuing to do well on nasal CPAP therapy. She has excellent compliance and significant clinical improvement. The current pressure appears effective and comfortable. Overall, she is very satisfied with treatment and plans to continue with it long-term. Because her CPAP is now older than the useful life of 5 years, I will order her a new one and make it an autoCPAP set between 8 and 14 cmH2O. PLAN: 1. Continue with autoCPAP set at 8 14 cmH2O. 2. Try to lose weight 3. Return for a follow up in a year or earlier if there is any problem. Prescriptions: Auto CPAP Follow up with Sleep Care in: 1 year Visit Type: In Office Other Participants: Spouse/Significant Other Time Spent with Patient (minutes): 15 Provider Statement: I spent 100% of the Face to Face Visit with the patient with greater than 50% spent counseling the patient and coordination of care.
[2023-02-10 12:24] VITALS: BP 126/68; O2SAT 99
== END 2023-02-10 10:48 | disposition home or self-care (01) ==
LOC: SC 10:47
PROVIDERS: ATTEND Internal Medicine Pulmonary Disease
DX: G47.33 Obstructive sleep apnea (adult) (pediatric) (principal); E66.3 Overweight; Z68.28 Body mass index [BMI] 28.0-28.9, adult
CPT/HCPCS: 99212; G0463

== ENCOUNTER 2023-02-22 08:25 | Outpatient (CLI) | payer MEDICARE, OTHER ==
[2023-02-22 08:46] LABS: BASOPHILS % (AUTO) 0.4 %; EOSINOPHILS # (AUTO) 0.2 10^3/uL (0.0-0.7); EOSINOPHILS % (AUTO) 2.5 %; HCT - HEMATOCRIT 38.5 % (37.0-47.0); LYMPHOCYTES # (AUTO) 2.4 10^3/uL (1.5-3.5); LYMPHOCYTES % (AUTO) 32.5 %; MEAN CORPUSCULAR HEMOGLOBIN 25.9 pg (27.0-31.0); MEAN CORPUSCULAR HGB CONC 31.2 g/dL (32.0-36.0); MEAN PLATELET VOLUME 9.1 fL (7.9-10.8); MONOCYTES # (AUTO) 0.7 10^3/uL (0.0-1.0); MONOCYTES % (AUTO) 9.6 %; NEUTROPHILS % (AUTO) 54.6 %; PLT - PLATELET COUNT 340 10^3/uL (130-450); RED BLOOD COUNT 4.64 10^6/uL (4.20-5.40); RED CELL DISTRIBUTION WIDTH 13.8 % (12.0-15.0); WHITE BLOOD COUNT 7.3 x10^3/uL (4.8-10.8)
[2023-02-22 09:45] LABS: ALBUMIN 4.3 g/dL (3.2-5.5); ALBUMIN/GLOBULIN RATIO 1.7 (1.0-2.2); ALKALINE PHOSPHATASE 67 IU/L (42-121); ALT ALANINE AMINOTRANSFERASE 17 IU/L (10-60); AST ASPARTATE AMINOTRANSFERASE 17 IU/L (10-42); BILIRUBIN,TOTAL 0.4 mg/dL (0.2-1.0); BUN - BLOOD UREA NITROGEN 14 mg/dL (6-20); CALCIUM 9.3 mg/dL (8.5-10.3); CARBON DIOXIDE - CO2 30 mmol/L (21-32); CHLORIDE 105 mmol/L (101-111); CHOL/HDL RATIO 3.2 (<4.4); CHOLESTEROL 146 mg/dL; CREATININE 0.7 mg/dL (0.6-1.3); GFR - MDRD 80 (>89); GLUCOSE 115 mg/dL (74-104); HDL CHOLESTEROL 46 mg/dL; LDL CHOLESTEROL,CALCULATED 67 mg/dL; LDL/HDL RATIO 1.5 (<4.4); POTASSIUM 4.4 mmol/L (3.5-4.5); SODIUM 141 mmol/L (135-145); TOTAL PROTEIN 6.8 g/dL (6.4-8.9); TRIGLYCERIDES 164 mg/dL (48-352); VLDL CHOLESTEROL 33 mg/dL
[2023-02-22 09:58] LABS: THYROID STIMULATING HORMONE 2.47 uIU/mL (0.34-5.60)
[2023-02-22 11:26] LABS: ESTIMATED AVERAGE GLUCOSE 151 mg/dL (70-100); HEMOGLOBIN A1c% 6.9 % (4.27-6.07)
== END 2023-02-22 08:26 | disposition home or self-care (01) ==
LOC: LAB 08:25
PROVIDERS: ATTEND Family Medicine
DX: E11.65 Type 2 diabetes mellitus with hyperglycemia (principal); D12.6 Benign neoplasm of colon, unspecified; N32.81 Overactive bladder; R35.0 Frequency of micturition; M47.26 Other spondylosis with radiculopathy, lumbar region; R60.9 Edema, unspecified; G47.30 Sleep apnea, unspecified
CPT/HCPCS: 36415; 80053; 80061; 83036; 83721; 84443; 85025

== ENCOUNTER 2023-04-23 10:06 | Outpatient (CLI) | payer MEDICARE, OTHER ==
[2023-04-23 10:47] LABS: CREATININE 0.7 mg/dL (0.6-1.3)
[2023-04-23] MEDS ORDERED: DIATRIZOATE MEGLU/DIATRIZO SOD 30 ML BOTTLE PO ONE (12:33)
[2023-04-23] MEDS ORDERED: iohexoL-300 100 ML VIAL IVP ONE (12:33)
--- NOTE | 2023-04-23 19:19 | CT Report ---
PROCEDURE: ABDOMEN/PELVIS W INDICATIONS: LLQ ABD TENDERNESS CONTRAST: 100ml omni 300 TECHNIQUE: After the administration of intravenous contrast, a CT scan of the abdomen and pelvis was performed. Images were recorded and evaluated at appropriate window settings. Reformats: coronal and sagittal. F or radiation dose reduction, the following was used: automated exposure control, adjustment of mA and /or kV according to patient size. COMPARISON: None. FINDINGS: Image quality: Excellent. Lung bases and heart: Unremarkable. Liver: No solid mass. Gallbladder and biliary tree: Spleen: No splenomegaly. Pancreas: No pancreatic ductal dilation. Adrenals: No adrenal nodule. Kidneys and ureters: No hydronephrosis. No renal cystic lesion which requires follow up. No solid mas s. Bowel and peritoneum: No bowel distension. No pathologic free fluid. Irregular filling defects in the cecum with ill-defined borders are present; this is not have a typical appearance of stool. The emanuel sverse colon has a short segment of narrowing consistent with either a stricture or peristalsis Lymph nodes: No central or retroperitoneal adenopathy. Vessels: The aorta has atherosclerotic calcifications. There is no aneurysmal dilatation. PELVIS Reproductive organs: Unremarkable. Bladder: No abnormal wall thickening, accounting for underdistention. Pelvic lymph nodes: No pelvic adenopathy by size criteria. Bones: No aggressive osseous abnormality. Other: No significant ventral or inguinal hernia. IMPRESSION: 1. No acute abnormality to explain left lower quadrant pain. 2. Irregular filling defects in the cecum with ill-defined borders, suspicious for neoplasm as well a s a short segment of narrowing in the transverse colon. Recommend colonoscopy. Reviewed by: Dion Valencia MD on 04/23/2023 7:18 PM PST Approved by: Dion Valencia MD on 04/23/2023 7:18 PM PST Station ID: [id number]
== END 2023-04-23 10:07 | disposition home or self-care (01) ==
LOC: LAB 10:06
PROVIDERS: ATTEND Family Medicine
DX: M25.59 Pain in other specified joint (principal); R10.814 Left lower quadrant abdominal tenderness; R93.3 Abnormal findings on diagnostic imaging of other parts of digestive tract
CPT/HCPCS: 36415; 74177; 82565; Q9963; Q9967

== ENCOUNTER 2023-07-17 10:54 | Day surgery (SDC) | payer MEDICARE, OTHER ==
--- NOTE | 2023-07-17 11:01 | HISTORY & PHYSICAL EXAMINATION ---
HPI - History of Present Illness HPI Comment/Other: Pre-op H&P I am asked to see Cece for a colonoscopy examination to evaluate LLQ pain and the CT finding of a possible cecal mass. She has no retal bleeding, weight loss, or change in her bowel habits. GI symptoms: None Family history of colon cancer: No Family history of colon polyps: No Personal history of colon polyps: No Last colonoscopy examination: 5-6 years ago Anticoagulant use: None The Past Family, Social and Personal History has been reviewed with the patient. ROS Denies fevers, chills, night sweats, shortness of breath, chest pain, change in the color of skin or urine, diarrhea, constipation, hematemesis, hematochezia, headache, visual changes, muscle aches. PE VSS, Afeb HEENT: Pupils equal, round and reactive to light, sclera anicteric, normal hearing, oral mucous membranes moist and without lesions NECK: Supple without lymphadenopathy, thyromegaly or carotid bruits LUNGS: Clear to auscultation without wheezing HEART: NSR without murmurs CHEST: Equal and symmetric expansion, no rib pain ABD: Soft, nontender, no hepatosplenomegaly, no hernias GROIN: No hernias or lymphadenopathy EXTREMITIES: Normal neuro and muscular exam SKIN: Anicteric Radiologic Studies 04/23/24 CT abd/pelvis with ? intraluminal cecal filling defect Labs: No recent evidence of anemia Assessment: Request for a colonoscopy examination. Plan: Colonoscopy under monitored sedation through the Day Surgery admission protocol at [facility]. Consent: Cece has been counseled for the procedure, it's indications, risks, benefits and expected outcome as well as alternative therapies. We specifically discussed risks associated with anesthesia and insertion of the endoscope into the large intestine which includes bleeding and injury to the colon which may require surgical intervention. Cece understands, agrees, and consents to the proposed operative strategy and requests that we proceed with the procedure as outlined in our discussion. 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
[2023-07-17] MEDS: LACTATED RINGERS 1,000 ML IV ONE ×2 (11:23→12:19)
[2023-07-17] MEDS ORDERED: PROPOFOL 500 MG/50 ML 500 MG/50 ML VIAL ONE (11:43)
--- NOTE | 2023-07-17 11:46 | ANESTHESIA ---
Pre-Anesthesia VS, & Labs - Diagnosis screening - Procedure colonscopy Vital Signs: Temp Pulse Resp BP Pulse Ox O2 Flow Rate 36.7 C 97 18 147/69 H 98 07/17/23 11:01 07/17/23 11:01 07/17/23 11:01 07/17/23 11:01 07/17/23 11:01 Height: 5 ft 6 in Weight (kg): 79.38 kg Body Mass Index: 28.2 BMI Classification: Overweight - NPO Other (water this am) - Is Patient ?: No - Lab Results Current Lab Results: Laboratory Tests 07/17/23 11:15: POC Whole Bld Glucose 120 H Home Medications and Allergies Home Medications: Ambulatory Orders Ibuprofen [Advil] 400 mg PO PRN PRN 07/16/23 metFORMIN [Glucophage] 500 mg PO BID 07/16/23 Atorvastatin [Lipitor] 20 mg PO DAILY 04/02/16 Multivitamin [Multivitamins] 1 each PO DAILY 04/02/16 lisinopriL [Lisinopril] 10 mg PO DAILY 04/02/16 Ibuprofen [Advil] 400 mg PO PRN PRN 07/16/23 metFORMIN [Glucophage] 500 mg PO BID 07/16/23 Allergies/Adverse Reactions: Allergies Allergy/AdvReac Type Severity Reaction Status Date / Time No Known Drug Allergies Allergy Verified 07/16/23 13:36 Anes History & Medical History - Anesthetic History Anesthesia Complications: reports: No previous complications - Medical History Cardiovascular: reports: Hypertension, High cholesterol Pulmonary: reports: Sleep apnea, CPAP use Gastrointestinal: reports: Colon polyps Urinary: reports: None Musculoskeletal: reports: None Endocrine/Autoimmune: reports: Type 2 diabetes Skin: reports: None Smoking Status: Former smoker Psychosocial: reports: Alcohol (rare) - Surgical History General: reports: Appendectomy, Colonoscopy Eyes Ears Nose Throat (EENT): reports: Cataracts Urologic: Gynecologic: reports: Hysterectomy Exam General: Alert, Oriented x3, Cooperative Dental: WNL, Partials Lower Mouth Opening: Greater than 4 Fingerbreadths Neck Mobility: Normal Mallampati classification: II (overbite) Thyromental Distance: greater than 6 cm Respiratory: Lungs clear Cardiovascular: Regular rate, Normal S1, Normal S2 Plan Anesthesia Type: Total IV Consent for Procedure(s) Verified and Reviewed: Yes Code Status: Attempt Resuscitation ASA classification: 2-Mild systemic disease Is this case an emergency?: No
[2023-07-17 12:43] VITALS: BP 130/50; O2SAT 99
--- NOTE | 2023-07-17 14:20 | ANESTHESIA POST OP EVALUATION ---
Anesthesia Post Eval - Post Anesthesia Eval Vitals: Last Vital Signs Temp 36.3 C L 07/17/23 12:19 Pulse 76 07/17/23 12:41 Resp 18 07/17/23 12:41 BP 130/50 L 07/17/23 12:41 Pulse Ox 99 07/17/23 12:41 O2 Flow Rate CV Function Including HR & BP: Stable Pain Control: Satisfactory Nausea & Vomiting: Negative Mental Status: Baseline Respiratory Status: Airway Patent Hydration Status: Satisfactory Anesthesia Complications: None
== END 2023-07-17 10:55 | disposition home or self-care (01) ==
LOC: SDS 10:54
PROVIDERS: ATTEND Surgery
PROC: 0DBH8ZX Excision of Cecum, Via Natural or Artificial Opening Endoscopic, Diagnostic (ICD-10-PCS; principal; 2023-07-17 12:00)
DX: D12.0 Benign neoplasm of cecum (principal); K57.30 Diverticulosis of large intestine without perforation or abscess without bleeding; K64.9 Unspecified hemorrhoids; I10 Essential (primary) hypertension; E78.00 Pure hypercholesterolemia, unspecified; G47.30 Sleep apnea, unspecified; E11.9 Type 2 diabetes mellitus without complications; Z87.891 Personal history of nicotine dependence; Z79.84 Long term (current) use of oral hypoglycemic drugs
CPT/HCPCS: 45380; J7120

== ENCOUNTER 2023-12-19 15:38 | Outpatient (CLI) | payer MEDICARE, OTHER ==
--- NOTE | 2023-12-19 16:07 | Sleep Patient Instructions ---
Sleep Center Visit Summary - Patient Visit Information Reason for Visit: 10-month follow-up for Pap therapy - Patient Instructions Additional Instructions: You will continue with CPAP therapy with pressure set at 8-14 cmH2O. A supply prescription will be updated with your DME supplier. We encourage you to continue to try to lose weight. Please follow up with the sleep care office in 1 year. - Clinic Information Contact: [facility] [address] [place] [phone] [email or web address] T: [phone]
--- NOTE | 2023-12-19 16:26 | SLEEP CARE CONSULTATION ---
Information from patient questionnaire entered by Indra Pearce. I have reviewed and concur with the information entered by Indra Pearce. This document represents the service I personally performed and the decisions made by , Oma Escobedo ARNP. History of Present Illness Service Date and Time: 12/19/2023 1538 Previous diagnosis: Severe, Obstructive Sleep Apnea-Hypopnea Syndrome AHI: 53.9 (in 2018) Reason for follow up: other (10 month followup) Equipment type: CPAP (DREAMSTATION 2) Equipment obtained from: Other ([facility]; getting supplies) Mask style: Full face Mask brand: Resmed (AirTouch F20, large cushion) Backup mask available: Yes Last cushion change: last week Prior sleep studies: Yes Year and Where: 2017 - [facility] Type of Sleep Study: Polysomnography HPI additional information: GEOVANNA SALAZAR was diagnosed to have severe, AHI 53.9, obstructive sleep apnea- hypopnea syndrome and returned today with spouse for CPAP therapy 10 month follow-up. Sleep Study - Results Type of Sleep Study: Polysomnography Prior sleep studies: Yes Year and Where: 2017 - [facility] CPAP Compliance Data - Data Reviewed with Patient Average duration of nightly device use: 7 hours 30 mins Compliance rate %: 99.4 (180/180 days used) Current pressure setting (cmH2O): 8-14 Humidity settin Heated hose settin Average residual AHI: 1.4 Central apnea: 0.1 Obstructive apnea: 0.3 Hypopnea: 1 Average large leak: 6 mins 10 secs Subjective Patient concerns: denies: aerophagia, mask discomfort, air blowing in eyes, mask leak noise, condensation in mask/hose, nasal congestion, dry mouth, nose, throat, epistaxis Observed to snore while using device: No Current pressure setting perceived as: comfortable On therapy, patient: reports: sleeping better, awakening more refreshed, being more awake and alert during the day, more rested overall. denies: drowsiness while driving Initial [place] Sleepiness Scale score: 9 (in 2018) Current [place] Sleepiness Scale score: 3 (12/19/23) Allergies and Home Medications Known drug allergies: No Drug allergies reviewed: Yes Home medication list reviewed: Yes (no changes) Allergy and home medication list: Allergies No Known Drug Allergies Allergy Review of Systems Review of systems same as previous: Yes (no changes) Physical Exam Vital signs obtained and entered by: Oma Spivey NP Blood Pressure: 138/61 Cuff size: long (left arm) Heart Rate: 71 O2 Saturation: 97 Height: 5 ft 6 in Weight: 175 lb Weight change since last visit: 2 lb gain Body Mass Index: 28.2 BMI Classification: Overweight Impression and Plan 1. Obstructive Sleep Apnea-Hypopnea Syndrome, severe, with good treatment compliance and good apnea control. On CPAP therapy, the patient has better sleep quality and is more rested overall. She has significant improvement of her sleep apnea and is satisfied with current CPAP therapy. Patient denies problems with oral dryness, nasal congestion, epistaxis, skin irritation or aerophagia. Patient's apnea severity and rationale for treatment to reduce apnea, improve sleep quality and reduce cardiovascular and cerebrovascular events was reviewed. I also reviewed the benefit of consistent device use of CPAP for hypertension, diabetes. Patient states that she did receive the ResMed CPAP that was ordered but she did not like it. She returned the machine to the DME supplier. She then received a [employer] DreamStation 2 as a replacement for her other DreamStation for the recall. She really likes his new machine. 2. Overweight, unspecified. Currently patients BMI is 28.2. Obesity increases the risk of apnea, CPAP pressure requirements and overall health risks especially cardiovascular and diabetes. Thus patient is advised to lose weight. * Continue auto CPAP pressure at 8-14 cmH2O * Update supply prescription. * Notify me if snoring with mask or feeling that the pressure is too much or too little * Attempt to lose weight * Call this office if any problems using CPAP * Return for follow up in 12 months, or sooner if concerns arise Counseling Topics: Spare mask, Weight loss health impact Prescriptions: Device supplies Follow up with Sleep Care in: 1 year Visit Type: In Office Time Spent with Patient (minutes): 23 Provider Statement: I spent 100% of the Face to Face Visit with the patient with greater than 50% spent counseling the patient and coordination of care.
[2023-12-19 16:34] VITALS: BP 138/61; O2SAT 97
== END 2023-12-19 15:39 | disposition home or self-care (01) ==
LOC: SC 15:38
PROVIDERS: ATTEND Nurse Practitioner Family
DX: G47.33 Obstructive sleep apnea (adult) (pediatric) (principal); E66.3 Overweight; Z68.28 Body mass index [BMI] 28.0-28.9, adult
CPT/HCPCS: 99213; G0463; 99212